=== PATIENT | male | born 1960 | race Caucasian/White ===

== ENCOUNTER 2017-05-20 18:47 | Observation (INO) ==
[2017-05-20] MEDS ORDERED: 0.9 % Sodium Chloride 1,000 ML IVC ONE ×3 (19:05→20:46)
--- NOTE | 2017-05-20 19:07 | Emergency Department Note ---
Disposition Clinical Impression: Benign paroxysmal positional vertigo Disposition: Admitted As Inpatient Condition: Fair Time of Disposition: 22:02 ([facility]) Dizziness HPI - General Chief Complaint: ED Dizziness Stated Complaint: vertigo nausea Time Seen by Provider: 05/20/17 18:53 Source: patient, family, EMS Mode of arrival: EMS Limitations: no limitations Nursing Notes Reviewed: Yes Vital Signs Reviewed: Yes - History of Present Illness HPI Narrative: 57-year-old male that presented to the emergency room who has been having some subtle symptoms for the past 3-4 weeks of having some intermittent vertiginous type symptoms but today the sudden onset of severe vertiginous type symptoms said when he opens his eyes everything is spinning he said he feels like he cannot get his balance is nauseated sick to his stomach but he has not vomited he has not fallen struck or hit his head he denies any blurred vision double vision he did try taking some Antivert prior to arrival to the emergency room with no relief she denies chest pain chest pressure palpitations denies cough hemoptysis sputum production earlier this month he was treated for an otitis externa with antibiotics Pt Subjective Complaint: dizziness Onset (ago): week(s) (4) Timing: sudden onset Description: sense of movement History of similar episodes: No History of trauma: No Severity: severe Improves with: remaining still Worsens with: movement Associated symptoms: Reports: weakness, nausea. Denies: ataxia, chest pain, confusion, diaphoresis, fever, chills, malaise, rash, shortness of breath, syncope, vision changes, vomiting, palpitations - Related Data Home Medications Medication Instructions Recorded Confirmed Aspirin [Lo-Dose Aspirin EC] 81 mg PO DAILY 04/14/17 04/14/17 Dexlansoprazole [Dexilant] 60 mg PO DAILY 04/14/17 05/20/17 Gabapentin [Neurontin] 600 mg PO TID 04/14/17 05/20/17 Lisinopril [Zestril] 20 mg PO DAILY 04/14/17 05/20/17 [place]-3S/Dha/Epa/Fish Oil [Fish 1 each PO DAILY 04/14/17 05/20/17 Oil 1,200 mg Softgel] Testosterone [Androgel] 75 gm TD DAILY 04/14/17 05/20/17 Tramadol HCl [Ultram] 50 mg PO TID PRN 04/14/17 05/20/17 Venlafaxine HCl [Venlafaxine HCl 05/20/17 ER] Allergies Allergy/AdvReac Type Severity Reaction Status Date / Time Hydromorphone [From Dilaudid] Allergy See Verified 05/20/17 19:44 Comments pregabalin [From Lyrica] AdvReac Rash Verified 05/20/17 19:42 All systems ED: reviewed and negative except as stated. Review of Systems: As Per HPI Constitutional: Reports: weakness. Denies: fever, chills Eyes: Denies: eye pain, eye discharge ENT ED: Denies: ear pain, throat pain Cardiovascular: Denies: chest pain, palpitations Respiratory: Denies: cough, dyspnea, wheezes Gastrointestinal: Denies: abdominal pain, nausea Genitourinary: Denies: urgency, dysuria Musculoskeletal: Denies: back pain, neck pain Integumentary: Denies: rash, abrasion Neurological: Reports: headache, weakness, vertigo Psychiatric: Denies: anxiety, depression Endocrine: Denies: fatigue Hematological/Lymphatic: Denies: easy bleeding Allergic/Immunologic: Denies: facial swelling Past Medical History - Past Medical History Attestation: Yes The following information was validated with the patient. Source: patient, old records reviewed, nursing notes reviewed Medical history: Reports: non-contributory, hyperlipidemia, other Psychiatric history: Reports: anxiety, depression - Social History Smoking Status: Never smoker Smokeless Tobacco Status: No Alcohol use: Reports: none Drug use: Reports: none Physical Exam - General Limitations: no limitations General appearance: alert, in no apparent distress, anxious, obese - Head Head exam: atraumatic, normocephalic, normal inspection - Eye Eye exam: Present: normal appearance, PERRL, EOMI - ENT ENT exam: normal exam, normal oropharynx, mucous membranes moist, TM's normal bilaterally, normal external ear exam - Neck Neck exam: Present: normal inspection, full ROM, trachea midline - Chest Chest inspection: Present: normal inspection, symmetric chest wall rise - Respiratory Respiratory exam: Present: normal lung sounds bilaterally - Cardiovascular Cardiovascular exam: Present: regular rate, normal rhythm, normal heart sounds - Abdominal Exam Abdominal exam: Present: soft, Non-Tender, normal bowel sounds. Absent: mass, pulsatile mass - Extremities Exam Extremities exam: Present: normal inspection, full ROM, normal capillary refill. Absent: tenderness - Expanded Lower Extremity Exam Neurovascular/Tendon exam: Present: normal capillary refill, normal fine/light touch Gait: not tested/not observed - Back Exam Back exam: Present: normal inspection, full ROM. Absent: muscle spasm - Neurological Exam Neurological exam: Present: alert, oriented X3, CN II-XII intact - Psychiatric Psychiatric exam: Present: normal affect, normal mood - Skin Skin exam: Present: warm, dry, intact, normal color Course Course Narrative: She was seen and examined patient was given 50 mg of meclizine with little improvement of the vertiginous-type symptoms patient was then given 5 mg of Valium and some Zofran which did seem to help ease the vertiginous symptoms to the point where he was now able to lie on his side and keep his eyes open as for getting up and trying to move about patient still was dizzy lightheaded felt like everything was spinning around him as result spoke with family and patient is agreeable for observation overnight with Valium to be supplementing his meclizine transferred to [facility] stable Vital Signs Temperature 97.1 F L 05/20/17 18:47 Pulse Rate 61 05/20/17 18:47 Respiratory Rate 12 05/20/17 18:47 Blood Pressure 141/89 05/20/17 18:47 O2 Sat by Pulse Oximetry 97 05/20/17 18:47 Temperature 97.1 F L 05/20/17 18:47 Pulse Rate 73 05/20/17 22:59 Respiratory Rate 16 05/20/17 22:59 Blood Pressure 161/100 05/20/17 22:59 O2 Sat by Pulse Oximetry 91 05/20/17 22:59 Oxygen Delivery Oxygen Delivery Room Air Dizziness - Differential Diagnosis Likely: benign paroxysmal positional vertigo, vertebral basilar insufficiency - Medical Records Medical records reviewed: Yes I reviewed the patient's medical records. - Lab Data Lab results reviewed: Yes I reviewed the patient's lab results. Result diagrams: 05/20/17 19:23 05/20/17 19:23 Lab Results 05/20/17 05/20/17 05/20/17 Range/Units 19:23 19:23 19:23 WBC 5.4 (4.3-11.1) K/mcL RBC 4.55 (4.19-5.50) M/mcL Hgb 14.3 (12.9-16.9) g/dL Hct 40.3 (37.5-50.1) % MCV 88.6 (83.0-100.0) fL MCH 31.4 (28.0-33.3) pg MCHC 35.5 (31.6-35.5) g/dL RDW 12.4 (11.5-14.5) % Plt Count 173 (140-400) K/mcL MPV 9.7 (9.4-12.4) fL Immature Gran % 0.4 (0-4) % Seg Neutrophils % 74.9 % Lymphocytes % 14.1 % Monocytes % 10.4 % Eosinophils % 0.0 % Basophils % 0.2 % Neutrophils # 4.1 (1.6-8.9) K/mcL Lymphocytes # 0.8 (0.6-4.6) K/mcL Monocytes # 0.6 (0.0-1.3) K/mcL Eosinophils # 0.0 (0.0-0.6) K/mcL Basophils # 0.0 (0.0-0.2) K/mcL Sodium 141 (136-145) mEq/L Potassium 3.9 (3.5-4.5) mEq/L Chloride 105 (98-109) mEq/L Carbon Dioxide 24 (19-29) mEq/L BUN 22 (8-26) mg/dL Creatinine 0.93 (0.72-1.25) mg/dL Est GFR ( Amer) > 60 (> 60) Est GFR (Non-Af Amer) > 60 (> 60) BUN/Creatinine Ratio 24 (6-26) Glucose 120 H (70-99) mg/dL Calculated Osmolality 297 (280-300) Calcium 9.6 (8.6-10.8) mg/dL Troponin I 0.00 (0-0.03) ng/mL - Radiology Data Radiology results reviewed: Yes I reviewed the patient's radiology results. ITS Impressions Head CT 05/20/17 19:04 IMPRESSION: No acute intracranial abnormality. D/ / Sean Leon MD / Sean Leon MD Interpreting Provider: Sean Leon MD - EKG Data EKG attestation: Yes I reviewed and interpreted this EKG. EKG results narrative: Sinus bradycardia nonspecific T-wave changes rate 57 HI 198 QT 426 QRS 125 access 64 Critical Care Time Critical Care Time: No
[2017-05-20 19:33] LABS: Basophils % 0.2 %; Hematocrit 40.3 % (37.5-50.1); Hemoglobin 14.3 g/dL (12.9-16.9); Immature Granulocytes % 0.4 % (0-4); Lymphocytes # 0.8 K/mcL (0.6-4.6); Lymphocytes % 14.1 %; Mean Corpuscular HGB Conc 35.5 g/dL (31.6-35.5); Mean Corpuscular Hemoglobin 31.4 pg (28.0-33.3); Mean Corpuscular Volume 88.6 fL (83.0-100.0); Mean Platelet Volume 9.7 fL (9.4-12.4); Monocytes # 0.6 K/mcL (0.0-1.3); Monocytes % 10.4 %; Neutrophils # 4.1 K/mcL (1.6-8.9); Platelet Count 173 K/mcL (140-400); Red Blood Count 4.55 M/mcL (4.19-5.50); Red Cell Distribution Width 12.4 % (11.5-14.5); Segmented Neutrophils % 74.9 %
[2017-05-20] MEDS ORDERED: Ondansetron 4 MG/2 ML VIAL IVP ONE (19:46)
[2017-05-20 19:49] LABS: BUN/Creatinine Ratio 24 (6-26); Blood Urea Nitrogen 22 mg/dL (8-26); Calcium 9.6 mg/dL (8.6-10.8); Carbon Dioxide 24 mEq/L (19-29); Chloride 105 mEq/L (98-109); Glucose 120 mg/dL (70-99); Osmolality,Calculated 297 (280-300); Potassium 3.9 mEq/L (3.5-4.5); Sodium 141 mEq/L (136-145); eGFR For African Americans > 60 (> 60); eGFR For Non-African Americans > 60 (> 60)
[2017-05-20] MEDS ORDERED: *HR* Nalbuphine 20 MG/ML AMPUL IVP STA (20:28)
[2017-05-20] MEDS ORDERED: diazePAM 10 MG/2 ML SYRINGE IVP ONE (20:29)
[2017-05-21] MEDS ORDERED: traMADol 50 MG TABLET PO PRN (00:34)
[2017-05-21] MEDS ORDERED: Naloxone 0.4 MG/ML INJ IVP PRN (00:34)
[2017-05-21 06:32] LABS: Basophils % 0.2 %; Hemoglobin 13.8 g/dL (12.9-16.9); Immature Granulocytes % 0.3 % (0-4); Lymphocytes % 16.5 %; Mean Corpuscular HGB Conc 35.4 g/dL (31.6-35.5); Mean Corpuscular Hemoglobin 31.4 pg (28.0-33.3); Mean Corpuscular Volume 88.6 fL (83.0-100.0); Mean Platelet Volume 9.9 fL (9.4-12.4); Monocytes # 0.6 K/mcL (0.0-1.3); Monocytes % 10.5 %; Neutrophils # 4.3 K/mcL (1.6-8.9); Platelet Count 179 K/mcL (140-400); Red Cell Distribution Width 12.4 % (11.5-14.5); Segmented Neutrophils % 72.5 %
[2017-05-21 06:40] LABS: INR 1.2; Prothrombin Time 12.7 Seconds (9.4-12.1)
[2017-05-21 06:42] LABS: Activated Partial Thrombo Time 27.8 Seconds (26.0-36.0)
[2017-05-21 06:47] LABS: BUN/Creatinine Ratio 25 (6-26); Blood Urea Nitrogen 18 mg/dL (8-26); Calcium 8.4 mg/dL (8.6-10.8); Carbon Dioxide 22 mEq/L (19-29); Chloride 109 mEq/L (98-109); Glucose 117 mg/dL (70-99); Osmolality,Calculated 297 (280-300); Potassium 4.1 mEq/L (3.5-4.5); Sodium 142 mEq/L (136-145); eGFR For African Americans > 60 (> 60); eGFR For Non-African Americans > 60 (> 60)
[2017-05-21 06:47] LABS: Bilirubin,Urine Negative (Negative); Blood,Urine Negative (Negative); Clarity,Urine Clear (Clear); Color,Urine Yellow (Yellow); Glucose,Urine (UA) Normal (Normal); Ketones,Urine Negative (Negative); Leukocyte Esterase,Urine Negative (Negative); Nitrite,Urine Negative (Negative); PH,Urine 6.5 pH Units (5.0-8.0); Protein,Urine Negative (Neg-Trace); Urobilinogen,Urine Normal (Normal)
[2017-05-21] MEDS ORDERED: TESTOSTERONE 75 GM TP SCH (09:00)
[2017-05-21] MEDS ORDERED: Aspirin Enteric Coated 81 MG Tablet PO SCH (09:00)
[2017-05-21] MEDS ORDERED: (Fish Oil 1,200 Mg Softgel) PO SCH (09:00)
[2017-05-21] MEDS ORDERED: diazePAM 5 MG TABLET PO SCH (09:00)
[2017-05-21] MEDS ORDERED: DEXILANT PO SCH (09:00)
[2017-05-21] MEDS ORDERED: Gabapentin 300 MG CAPSULE PO SCH (09:00)
[2017-05-21] MEDS ORDERED: Lisinopril 20 MG TABLET PO SCH (09:00)
[2017-05-21 11:36] VITALS: BP 117/73
--- NOTE | 2017-05-21 14:07 | Electrocardiograph Report ---
[address] [address] Test Date: 2017-05-20 Pat Name: Antonio Osborne Department: [id number] Room: [facility] Gender: M Daylight Driller: [id number] : 1960 Requested By: Kristine Valencia Order Number: [id number] Reading MD: Moi Santos MD Measurements Intervals Barron Rate: 57 P: 52 NM: 198 QRS: 64 QRSD: 125 T: 50 QT: 426 QTc: 419 Interpretive Statements SINUS BRADYCARDIA Electronically Signed On 05-21-2017 14:06:06 EDT by Moi Santos MD
--- NOTE | 2017-05-21 14:47 | Internal Med History&Physical ---
Date of Encounter: 05/21/17 Time of Encounter: 14:00 Assessment and Plan (1) Vertigo Current visit: Yes Status: Acute Suspect vertiginous migraine without headache or less likely vestibular neuronitis. He states he feels improved now and wishes to be discharged home. Internal Medicine - H&P: HPI Chief complaint: Vertigo Admitted From: Home Plans for Post Hospital Care: Home History of present illness: Mr. Osborne is a 57 year old male who came to the emergency room stating he had onset of severe vertigo approximately 4:45 PM while sitting at leisure. It was so intense it caused him to feel nauseated. The squad was called and he had an episode of vomiting after squad members arrived. He experienced photophobia and heightened sense of smell and sound. He was evaluated in emergency room and felt to have BPPV. He was admitted to [facility] for ongoing care needs. He states he had less severe episodes of similar sensation intermittently over the preceding week. He denies vertigo sensations on movement of his head. He denies any head trauma and has had no other associated symptoms. He was diagnosed with migraine headaches many years ago but states his last migraine was approximately 2 years ago. He has been having "other headaches" intermittently over the past few months. He has not taken Imitrex for at least 2 years. He uses Neurontin for chronic back pain and fibromyalgia. He denies large distribution strokes or seizures. He reports he had an ear infection for 6 weeks ago involving the right ear with good recovery. Past Med Surg Social Fam HX - Past Medical History Medical history: non-contributory, hyperlipidemia, hypertension, other Psychiatric history: anxiety, depression - Past Surgical History Surgical History: cholecystectomy - Social History Smoking Status: Never smoker Smokeless Tobacco Status: No Alcohol use: none Drug use: none - Family History Mother Living Status: Still Living Hx Family Cardiac Disorders: Yes (PACEMAKER) Father Living Status: Still Living Hx Family Cardiac Disorders: Yes (PACEMAKER) Internal Medicine - H&P: Meds Aspirin [Lo-Dose Aspirin EC] 81 mg PO DAILY 04/14/17 [History] Dexlansoprazole [Dexilant] 60 mg PO DAILY 04/14/17 [History] Gabapentin [Neurontin] 600 mg PO TID 04/14/17 [History] Lisinopril [Zestril] 20 mg PO DAILY 04/14/17 [History] [place]-3S/Dha/Epa/Fish Oil [Fish Oil 1,200 mg Softgel] 1 each PO DAILY 04/14/17 [ History] Testosterone [Androgel] 75 gm TD DAILY 04/14/17 [History] Tramadol HCl [Ultram] 50 mg PO TID PRN 04/14/17 [History] Venlafaxine HCl [Venlafaxine HCl ER] 05/20/17 [History] Allergies Hydromorphone [From Dilaudid] Allergy (Verified 05/20/17 19:44) See Comments pregabalin [From Lyrica] Adverse Reaction (Verified 05/20/17 19:42) Rash All Systems PM: A 10-system review of systems was performed and is negative for pertinent findings except as documented above in the HPI. Review of systems: Gen.: He states his weight has been stable the past few months Cardiovascular: He has history of hypertension but denies MA heart failure angina DVT or pulmonary embolus Respiratory: He is a lifelong nonsmoker and has no known chronic lung disease GI: He has GERD and has had cholecystectomy. He denies disorders of his liver or exocrine pancreas : He has had kidney stones on 2 occasions in the past. He denies other kidney or bladder or prostate disorders Neurologic: As per history of present illness Endocrine: He takes fish oil for hyperlipidemia. He denies diabetes or thyroid disease Hematology/oncology: Denies blood disorders cancers or anemia Psychiatric: He has a diagnosis of depression but denies anxiety or other mental health issues Musk skeletal: He has fibromyalgia. He has chronic back and neck pain. Reports a back injury with L1-4 vertebral fractures remotely. He has had rib fractures and a coccyx fracture. He has had bilateral carpal tunnel surgery and 2 knee arthroscopy procedures done. - Constitutional Vitals: Temp Pulse Resp BP Pulse Ox 98.6 F 66 17 117/73 96 05/21/17 11:35 05/21/17 11:35 05/21/17 11:35 05/21/17 11:35 05/21/17 11:35 Exam: Gen.: He is a well-developed well-nourished male who appears in mild discomfort at present time. HEENT: Head is atraumatic and normocephalic. Eyes: EOMI. There is no scleral icterus. Ears: The right TM is not visualized well. The left TM shows no significant abnormality. Mouth: Mucosa is moist Neck: Supple and nontender. There is no thyromegaly or adenopathy noted. Heart: Regular without murmurs gallops or ectopics Lungs: No wheezes or crackles are heard. Abdomen: Soft and nontender. No masses or guarding are noted. Extremities: There is no cyanosis edema or clubbing noted. Dorsalis pedis and posttibial pulses are 1-2 over 2 bilaterally. Neurologic: Mental status: He is talkative and a good historian. Cranial nerves : Smile is symmetric. Forehead wrinkles bilaterally. Tongue protrudes midline. EOMI. He has no sensation of vertigo on lying down or raising up in bed. Motor: There is no pronator drift. Cerebellar: Finger to nose is intact bilaterally. Skin: Warm and dry Internal Med - H&P Results - Labs CBC & Chem 7: 05/21/17 05:46 05/21/17 05:46 Labs: Short CBC 05/21/17 Range/Units 05:46 WBC 6.0 (4.3-11.1) K/mcL Hgb 13.8 (12.9-16.9) g/dL Hct 39.0 (37.5-50.1) % Plt Count 179 (140-400) K/mcL Neutrophils # 4.3 (1.6-8.9) K/mcL BMP 05/21/17 05:46 Sodium 142 Potassium 4.1 Chloride 109 Carbon Dioxide 22 BUN 18 Creatinine 0.73 Glucose 117 H Calcium 8.4 L
--- NOTE | 2017-05-21 15:00 | Discharge Summary ---
Date of Encounter: 05/21/17 Time of Encounter: 14:00 - Discharge Diagnosis (1) Vertigo Priority: Primary Status: Acute - Discharge Medications Prescriptions: diazePAM [Valium] 2 mg PO TID PRN #12 tablet PRN Reason: Vertigo Meclizine [Antivert] 25 mg PO Q6H PRN #12 tablet PRN Reason: Vertigo Ondansetron [Zofran] 4 mg PO Q4H PRN #6 tablet PRN Reason: Nausea SUMAtriptan succinate [Imitrex] 50 mg PO Q2H PRN #12 tablet PRN Reason: Migraine Headache Home Medications: Aspirin [Lo-Dose Aspirin EC] 81 mg PO DAILY 04/14/17 [History] Dexlansoprazole [Dexilant] 60 mg PO DAILY 04/14/17 [History] Gabapentin [Neurontin] 600 mg PO TID 04/14/17 [History] Lisinopril [Zestril] 20 mg PO DAILY 04/14/17 [History] [place]-3S/Dha/Epa/Fish Oil [Fish Oil 1,200 mg Softgel] 1 each PO DAILY 04/14/17 [ History] Testosterone [Androgel] 75 gm TD DAILY 04/14/17 [History] Tramadol HCl [Ultram] 50 mg PO TID PRN 04/14/17 [History] Venlafaxine HCl [Venlafaxine HCl ER] 05/20/17 [History] Meclizine [Antivert] 25 mg PO Q6H PRN #12 tablet 05/21/17 [Rx] Ondansetron [Zofran] 4 mg PO Q4H PRN #6 tablet 05/21/17 [Rx] SUMAtriptan succinate [Imitrex] 50 mg PO Q2H PRN #12 tablet 05/21/17 [Rx] diazePAM [Valium] 2 mg PO TID PRN #12 tablet 05/21/17 [Rx] Allergies/Adverse Reactions: Allergies Hydromorphone [From Dilaudid] Allergy (Verified 05/20/17 19:44) See Comments pregabalin [From Lyrica] Adverse Reaction (Verified 05/20/17 19:42) Rash Date of admission: 05/20/17 23:44 Primary care physician: Mayur Mcgovern M.D. - Patient Status Disposition: Home, Self-Care Condition: Fair Functional capacity at discharge: independent ambulation Overall status at discharge: patient is progressing back to baseline - Discharge Instructions Follow Up With: Mayur Mcgovern MD [Partnered Physician] - 1 week - Diet and Activity Activity: resume usual activities as tolerated Diet: advance to your usual diet Hospital course: Mr. Osborne is a 57 year old male who came to the emergency room stating he had onset of severe vertigo approximately 4:45 PM while sitting at leisure. It was so intense it caused him to feel nauseated. The squad was called and he had an episode of vomiting after squad members arrived. He experienced photophobia and heightened sense of smell and sound. He was evaluated in emergency room and felt to have BPPV. He was admitted to [facility] for ongoing care needs. Initial orders were written by the emergency room physician. I saw him the afternoon of May 21 and performed a history physical and discharge. When I saw him he felt improved and wished to be discharged home. I told him I did not think he likely had BPPV because of lack of association of symptoms with head movement and prolonged duration of symptoms. I felt that it was more likely he had a migraine headache variant since there was associated photophobia and hyperacuity of sound and smell. I told him he less likely had vestibular neuronitis perhaps related to viral infection. He wished to be discharged home which I felt was reasonable. He will be given medication for symptomatic relief of nausea and vertigo. He will be given a prescription for Imitrex to use if there is a repeat prolonged occurrence of symptoms. He will follow with his PCP Mayur Mcgovern M.D. within 1 week. He will return to work May 26 if stable. - Time Spent with Patient Total time spent providing and/or coordinating discharge services: - Constitutional Vitals: Temp Pulse Resp BP Pulse Ox 98.6 F 66 17 117/73 96 05/21/17 11:35 05/21/17 11:35 05/21/17 11:35 05/21/17 11:35 05/21/17 11:35
== END 2017-05-21 15:30 | disposition home or self-care (01) ==
LOC: EMEROOPIK 18:47 → INPPIK 18:47
PROVIDERS: ADMIT Internal Medicine; ATTEND Internal Medicine